=== PATIENT | female | born 2005 | race Caucasian/White ===

== ENCOUNTER 2025-04-28 21:32 | Emergency (ER) | payer OTHER, SELFPAY ==
[2025-04-28 21:38] VITALS: BP 135/80
[2025-04-28 21:49] LABS: % Basophils 0.4 % (0-2); % Eosinophils 1.4 % (0-6); % Immature Granulocytes 0.3 % (0-0.5); % Lymphocytes 41.5 % (20.5-51.1); % Monocytes 10.4 % (1.7-9.3); Absolute Eosinophils 0.1 10^3/uL (0-0.7); Absolute Lymphocytes 3.2 10^3/uL (1.2-3.4); Absolute Monocytes 0.8 10^3/uL (0.1-0.6); Absolute Neutrophils 3.6 10^3/uL (1.4-6.5); Hemoglobin 11.7 g/dL (13.0-18.0); Mean Corp Hgb Conc. 33.4 g/dL (33.0-37.0); Mean Corpuscular Hgb 26.6 pg (27.0-31.0); Mean Corpuscular Volume 79.5 fL (80.0-94.0); Mean Platelet Volume 9.1 fL (7.4-10.4); Nucleated Red Blood Cells % 0 % (-); Platelet Count 279 10^3/uL (130-400); Red Cell Dist. Width 13.2 % (11.5-14.5); White Blood Cell Count 7.8 10^3/uL (4.8-10.8)
[2025-04-28 22:03] LABS: HCG, Serum Qualitative Screen Negative
[2025-04-28 22:07] LABS: ALT (SGPT) 18 U/L (0-50); AST (SGOT) 21 U/L (17-59); Albumin 4.1 g/dl (3.5-5.0); Alkaline Phosphatase 74 U/L (38-126); Blood Urea Nitrogen 9 mg/dl (9-20); Calcium 9.2 mg/dl (8.4-10.2); Carbon Dioxide 23 mmol/L (22-30); Chloride 112 mmol/L (98-107); Glucose 104 mg/dl (70-99); Lipase 107 U/L (23-300); Potassium 3.7 mmol/L (3.5-5.1); Sodium 141 mmol/L (135-145); Total Bilirubin 0.6 mg/dl (0.2-1.3)
[2025-04-28 22:17] LABS: Total Protein 6.7 g/dl (6.3-8.2); eGFR > 60.00
[2025-04-29 01:10] VITALS: BP 123/72
[2025-04-29 01:13] VITALS: BMI 31.4
[2025-04-29 01:23] LABS: Urine Albumin 1+ (Neg - Trace); Urine Bilirubin Negative (Negative); Urine Character Slightly Cloudy (Clear); Urine Color Amber; Urine Glucose Negative (Negative); Urine Ketone Negative (Negative); Urine Leukocyte 3+ (Negative); Urine Nitrite Negative (Negative); Urine Occult Blood Negative (Negative); Urine Specific Gravity 1.025 (<1.030); Urine Urobilinogen 2+ (Neg - 1+)
[2025-04-29 01:29] LABS: Urine Amorphous Seen; Urine Bacteria Many (Negative); Urine Mucus Many; Urine Squamous Cell >30 /LPF (Few)
[2025-04-29 01:30] LABS: Urine White Cell >100 /HPF (0-5)
--- NOTE | 2025-04-29 02:05 | ED.GENMED ---
History of Present Illness
<Reymundo Haro MD - Last Filed: 04/29/25 02:09>
General
Chief Complaint: Abdominal Pain
Source: patient
Exam Limitations: none
Time Seen by Provider: 04/29/25 00:55
History of Present Illness
History of Present Illness:
19-year-old female complaining of recurring episodes of bandlike upper abdominal pain. Some nausea. Has been going on for months. Typically 1-2 times per week. Typically last hours. Mere's episode has now resolved but she had one earlier in
the week. She has ultrasound scheduled for tomorrow
Past History
<Reymundo Haro MD - Last Filed: 04/29/25 02:09>
Past History
ED Past Medical History: None
Review of Systems
<Reymundo Haro MD - Last Filed: 04/29/25 02:09>
Review of Systems
All Other Systems: Not applicable
Constitutional: Denies fever
Respiratory: Reports no symptoms
: Reports no symptoms
Phy Exam
<Reymundo Haro MD - Last Filed: 04/29/25 02:09>
Physical Exam
Physical Exam:
GENERAL: Alert and oriented in no apparent distress
EYE: Orbits normal.
NECK: Supple
CARDIAC: Regular rate and rhythm without any obvious murmurs.
LUNGS: Clear breath sounds,normal
ABDOMEN: Soft, mild epigastric tenderness. No rebound or guarding no mass or hernia
NEUROLOGICAL: Alert and oriented , grossly non-focal
SKIN: Warm and dry, no rash or lesion, no discoloration, skin intact.
MUSCULOSKELETAL: No edema,no deformity.Good color
PSYCH: Normal and appropriate interaction.
Course
<Reymundo Haro MD - Last Filed: 04/29/25 02:09>
Orders/Labs/Results
Orders:
Orders
04/28/25 21:38
Test Result ONCE
04/28/25 21:43
Complete Blood Count/With Diff Urgent
Comprehensive Metabolic Panel Urgent
HCG, Serum Qualitative Screen Urgent
Lipase Urgent
04/29/25 01:05
US Abdomen Complete/Upper Urgent
Comment:
Reason For Exam: Right upper quadrant pain with radiation to the ba
04/29/25 01:15
Urinalysis Reflex To Culture Urgent
Date Specimen was Collected: 04/29/25
Time Specimen was Collected: 01:14
Urine Microscopic Reflex Cult Urgent
Urine Culture Urgent
[place] Source: U
Specimen Description:
Date Specimen was Collected: 04/29/25
Time Specimen was Collected: 01:14
Abnormal Lab Results
04/28/25 04/29/25
21:43 01:15
RBC 4.40 L 10^6/uL
(4.70-6.10)
Hgb 11.7 L g/dL
(13.0-18.0)
Hct 35.0 L %
(39.0-52.0)
MCV 79.5 L fL
(80.0-94.0)
MCH 26.6 L pg
(27.0-31.0)
Absolute Monos (auto) 0.8 H 10^3/uL
(0.1-0.6)
Monocytes % 10.4 H %
(1.7-9.3)
Chloride 112 H mmol/L
(98-107)
Glucose 104 H mg/dl
(70-99)
Urine Urobilinogen 2+ A
(Neg - 1+)
Leukocyte Esterase Rfl 3+ A
(Negative)
Urine RBC 3-6 A /HPF
(0-2)
Urine WBC (Reflex) >100 A /HPF
(0-5)
Urine Bacteria (Reflex) Many A
(Negative)
Urine Albumin (Reflex) 1+ A
(Neg - Trace)
04/28/25 21:43
04/28/25 21:43
Vital Signs
Initial and Last Documented VS:
Initial Vital Signs
Temp Pulse Resp BP Pulse Ox
98.3 F 93 16 135/80 99
04/28/25 21:38 04/28/25 21:38 04/28/25 21:38 04/28/25 21:38 04/28/25 21:38
Last Documented Vital Signs
Temp Pulse Resp BP Pulse Ox
97.9 F 74 16 124/82 99
04/29/25 01:10 04/29/25 03:45 04/28/25 21:38 04/29/25 03:45 04/29/25 03:45
Agneslt;Victorino Amin, DO - Last Filed: 04/29/25 04:55>
Orders/Labs/Results
Orders:
Orders
04/28/25 21:38
Test Result ONCE
04/28/25 21:43
Complete Blood Count/With Diff Urgent
Comprehensive Metabolic Panel Urgent
HCG, Serum Qualitative Screen Urgent
Lipase Urgent
04/29/25 01:05
US Abdomen Complete/Upper Urgent
Comment:
Reason For Exam: Right upper quadrant pain with radiation to the ba
04/29/25 01:15
Urinalysis Reflex To Culture Urgent
Date Specimen was Collected: 04/29/25
Time Specimen was Collected: 01:14
Urine Microscopic Reflex Cult Urgent
Urine Culture Urgent
[place] Source: U
Specimen Description:
Date Specimen was Collected: 04/29/25
Time Specimen was Collected: 01:14
Abnormal Lab Results
04/28/25 04/29/25
21:43 01:15
RBC 4.40 L 10^6/uL
(4.70-6.10)
Hgb 11.7 L g/dL
(13.0-18.0)
Hct 35.0 L %
(39.0-52.0)
MCV 79.5 L fL
(80.0-94.0)
MCH 26.6 L pg
(27.0-31.0)
Absolute Monos (auto) 0.8 H 10^3/uL
(0.1-0.6)
Monocytes % 10.4 H %
(1.7-9.3)
Chloride 112 H mmol/L
(98-107)
Glucose 104 H mg/dl
(70-99)
Urine Urobilinogen 2+ A
(Neg - 1+)
Leukocyte Esterase Rfl 3+ A
(Negative)
Urine RBC 3-6 A /HPF
(0-2)
Urine WBC (Reflex) >100 A /HPF
(0-5)
Urine Bacteria (Reflex) Many A
(Negative)
Urine Albumin (Reflex) 1+ A
(Neg - Trace)
04/28/25 21:43
04/28/25 21:43
Vital Signs
Initial and Last Documented VS:
Initial Vital Signs
Temp Pulse Resp BP Pulse Ox
98.3 F 93 16 135/80 99
04/28/25 21:38 04/28/25 21:38 04/28/25 21:38 04/28/25 21:38 04/28/25 21:38
Last Documented Vital Signs
Temp Pulse Resp BP Pulse Ox
97.9 F 74 16 124/82 99
04/29/25 01:10 04/29/25 03:45 04/28/25 21:38 04/29/25 03:45 04/29/25 03:45
<Reymundo Haro MD - Last Filed: 04/29/25 02:09>
MDM/Problems Addressed
Differential Diagnosis Includes:
Intermittent upper abdominal pain. Somewhat biliary colic like. Labs stable LFTs stable. Ultrasound pending.
<Reymundo Haro MD - Last Filed: 04/29/25 02:09>
*Pulse Oximetry
Patient hypoxic: no (100%)
<Victorino Amin DO - Last Filed: 04/29/25 04:55>
*Critical Care Note
Total Time (30-74mins, 75-104mins- exclusive of procedures): Not Applicable
<Victorino Amin DO - Last Filed: 04/29/25 04:55>
Update Note
Update Note:
NAME: MIKO LUEVANO
DATE OF EXAM: 04/29/2025
Patient No: [id number]
Physician: HUONG^FLORIN
Date of : 2005
Past Medical History (entered by Technologist):
Reason For Exam (entered by Technologist):
Other Notes (entered by Technologist):
Additional Information (per [facility]): Right upper quadrant pain
RUQ ABDOMINAL ULTRASOUND
IMPRESSION
Mobile gallstones. Gallbladder wall upper limits of normal 3.1 mm. No sonographic Juarez's sign, pericholecystic fluid, or other signs of cholecystitis. Common bile duct is unremarkable.
Small bilateral renal cysts.
Pancreas is partially obscured secondary to overlying bowel gas.
Remainder of the visualized upper abdomen is unremarkable.
ED Attending Note
<Reymundo Haro MD - Last Filed: 04/29/25 02:09>
-
Portions of this chart may have been created with voice recognition software.� Occasional wrong word or��sound alike� substitutions may have occurred due to the inherent limitations of voice recognition software.
Discharge Plan
Departure
Patient Disposition: Home (Routine Discharge)
Date of Disposition: 04/29/25
Time of Disposition: 03:27
Patient with high blood pressure during this ER visit?: Yes
Discharge Problem:
Abdominal pain
Instructions: Abdominal Pain, BLOOD PRESSURE
Prescriptions:
No Action
prednisone 10 MG tablet
10 mg PO .TAPER Qty: 30 0RF
Rx Instructions:
Take [id number], [id number], 57gar5kfac, 73jls7face, 07vrm4bxmp
Referrals:
Kandi Khan CRNP [Family Provider, Family Practice]
Beka Arellano MD [Active, Surgical]
Interventions
Interventions:
*Risk Screen - Suicide Last Done: 04/28/25 21:39
*General Assessment Last Done: 04/29/25 01:08
*Neglect/Abuse Screening Last Done: 04/29/25 03:45
*ED- Fall Risk Assessment Last Done: 04/29/25 01:08
*ED COVID-19 Vaccine History Last Done: 04/29/25 01:08
*Nursing Disposition Last Done: 04/29/25 03:45
AI-Bcltjc-Nfpqgyhapg Assessment Last Done: 04/29/25 01:13
Discharge Date and Time
Discharge Date/Time: 04/29/25 03:45
Print Language: TAMAZIGHT
[2025-04-29 03:45] VITALS: BP 124/82
== END 2025-04-29 03:45 | disposition home or self-care (01) ==
LOC: EMR 21:32
PROVIDERS: EMERGENCY PHYSICIAN Emergency Medicine; FAMILY PHYSICIAN Nurse Practitioner Family
DX: R10.10 Upper abdominal pain, unspecified (principal)
CPT/HCPCS: 99284; 76700; 80053; 81003; 81015; 83690; 84703; 85025; 87086

== ENCOUNTER 2025-06-19 06:47 | Emergency (ER) | payer OTHER, SELFPAY ==
[2025-06-19 06:56] VITALS: BP 107/60
--- NOTE | 2025-06-19 07:36 | ED.GENMED ---
History of Present Illness
General
Chief Complaint: Abdominal Pain
Source: patient
Exam Limitations: none
Time Seen by Provider: 06/19/25 07:06
Nursing documentation reviewed up to this point in time: agreed with
History of Present Illness
History of Present Illness:
19-year-old female with a history of gallbladder pain who presents with recurrent abdominal discomfort. The pain reportedly started 2:30 a.m. The patient describes the pain as constant, with a severity of 8 out of 10, and characterizes it as
stabbing and achy. Previously, the pain was relieved by vomiting; however, today, no relief was achieved with emesis. She has a history of similar episodes with the most recent occurrence being a month ago. Had US here 04/29 showing gall stones.
Her GI doctor is at [facility], saw him and had upper endoscopy was performed last , revealing minor irritation or erosion, and she has HIDA scan scheduled for June 24 at [facility].
Past History
Past History
ED Past Medical History: Other (gall stones)
Social History
Tobacco: Non-smoker
Alcohol: Occasional
Personal: Single
Living: with family
Employment: Employed
Review of Systems
Review of Systems
Allergies reviewed?: Yes
All Other Systems: ROS reviewed and negative except as documented in HPI and ROS
Constitutional: Denies fever
ABD/GI: Reports abdominal pain, nausea and vomiting; Denies diarrhea
Musculoskeletal: Reports no symptoms
Skin: Reports no symptoms
Neurological: Reports no symptoms
Phy Exam
Physical Exam
Physical Exam:
General: Alert, mild distress due to pain, sitting style bent over forward.
Skin: Warm, dry.
Eyes, ears, nose, mouth and throat: Oral mucosa moist.
Cardiovascular: Normal peripheral perfusion, no edema.
Respiratory: Respirations are non-labored.
Gastrointestinal: Soft, tender LUQ. Hypoactive BS. Abdomen nondistended.
Back: Normal range of motion, normal alignment.
Musculoskeletal: Normal range of motion, normal strength.
Neurological: Alert and oriented to person, place, time, and situation, no focal neurological deficit observed.
Psychiatric: Cooperative, appropriate mood & affect.
Course
Orders/Labs/Results
Orders:
Orders
06/19/25 07:32
IV Insert/Care/Rem.- Treatment PRN
0.9% Sodium Chloride 1000 ml [Nss] 1,000 ml IV BOLUS
Ketorolac [Toradol] 15 mg IV NOW STA
US Abdomen Complete/Upper Urgent
Comment:
Reason For Exam: RUQ pain
06/19/25 07:33
Test Result ONCE
06/19/25 07:59
Complete Blood Count/With Diff Urgent
Comprehensive Metabolic Panel Urgent
HCG, Serum Qualitative Screen Urgent
Lipase Urgent
Abnormal Lab Results
06/19/25
07:59
MCV 79.2 L fL
(81.0-99.0)
MCH 26.1 L pg
(27.0-31.0)
Absolute Neuts (auto) 8.2 H 10^3/uL
(1.4-6.5)
Absolute Monos (auto) 0.9 H 10^3/uL
(0.1-0.6)
Neutrophils % 76.9 H %
(42.2-75.2)
Lymphocytes % 14.2 L %
(20.5-51.1)
Glucose 144 H mg/dl
(70-99)
Total Bilirubin 1.5 H mg/dl
(0.2-1.3)
06/19/25 07:59
06/19/25 07:59
Vital Signs
Initial and Last Documented VS:
Initial Vital Signs
Pulse Resp BP Pulse Ox
60 20 107/60 98
06/19/25 06:56 06/19/25 06:56 06/19/25 06:56 06/19/25 06:56
Last Documented Vital Signs
Pulse Resp BP Pulse Ox
60 20 107/60 98
06/19/25 06:56 06/19/25 06:56 06/19/25 06:56 06/19/25 07:36
MDM/Problems Addressed
Differential Diagnosis Includes:
1. Cholecystitis
2. Gallstones
3. Peptic ulcer disease
4. Gastritis
5. Pancreatitis
6. Gastroesophageal reflux disease (GERD)
7. Hepatitis
8. Functional abdominal pain
9. Irritable bowel syndrome
10. Biliary dyskinesia
MDM/Problems Addressed:
19-year-old female with a history of gallbladder pain who presents with recurrent abdominal discomfort. The pain reportedly started 2:30 a.m. The patient describes the pain as constant, with a severity of 8 out of 10, and characterizes it as
stabbing and achy. Previously, the pain was relieved by vomiting; however, today, no relief was achieved with emesis. She has a history of similar episodes with the most recent occurrence being a month ago. Had US here 04/29 showing gall stones.
Her GI doctor is at [facility], saw him and had upper endoscopy was performed last , revealing minor irritation or erosion, and she has HIDA scan scheduled for June 24 at [facility].
Afebrile
Plan:
- Perform basic blood work.
- Conduct an abdominal ultrasound to assess gallbladder pathology.
- Administer intravenous fluids.
- Provide Toradol for pain management.
- Administer Zofran for nausea.
- Follow up with the upcoming test scheduled for June 24.
US 04/29 report reviewed: There are small shadowing gallstones layering in the gallbladder lumen. The gallbladder is mildly distended measuring 9 cm in length. The anterior gallbladder wall measures 3.1 mm in thickness. The sonographic Juarez's sign
was reportedly negative.
8:30 a.m.
CBC unremarkable
CMP total bili 1.5 up from 0.6 a month ago otherwise unremarkable
9:45 a.m.
Pt declined when pain med offered as 'not that bad' pain
Upper abd US radiology report read:
IMPRESSION:
Cholelithiasis. There are no sonographic findings to suggest acute cholecystitis. No evidence of biliary ductal dilation.
The pancreas is not optimally visualized, with no gross abnormality in the peripancreatic region.
Small simple cyst arising in the lower pole the right kidney.
Copy of report given to pt.
She will keep appt for HIDA this week and f/u with her GI doctor
Patient observed ambulating out with normal gait at discharge
*Pulse Oximetry
SaO2: 98
Oxygen Mode of Delivery: Room air
Patient hypoxic: not evaluated
*Critical Care Note
Total Time (30-74mins, 75-104mins- exclusive of procedures): Not Applicable
ED Attending Note
-
Portions of this chart may have been created with voice recognition software.� Occasional wrong word or��sound alike� substitutions may have occurred due to the inherent limitations of voice recognition software.
Discharge Plan
Departure
Patient Disposition: Home (Routine Discharge)
Date of Disposition: 06/19/25
Time of Disposition: 09:49
Patient with high blood pressure during this ER visit?: No
Condition: Good
Discharge Problem:
Abdominal pain, right upper quadrant
Instructions: Abdominal Pain
Prescriptions:
No Action
prednisone 10 MG tablet
10 mg PO .TAPER Qty: 30 0RF
Rx Instructions:
Take [id number], 78byn2lfyr, 80iwx5udup, 34kxh1eqgz, 78jic5ghsy
Referrals:
[facility] [Other] - Keep scheduled appt
Kandi Khan CRNP [Family Provider, Family Practice]
Activity Restrictions/Additional Instructions:
As we discussed, your workup here today shows nothing worrisome. Keep your appointment for your HIDA scan and follow-up with your GI doctor as scheduled
Ibuprofen 600 mg (with food) every 6 hours as needed for pain.
Interventions
Interventions:
*Risk Screen - Suicide Last Done: 06/19/25 06:56
*General Assessment Last Done: 06/19/25 06:56
*Neglect/Abuse Screening Last Done: 06/19/25 06:56
*ED- Fall Risk Assessment Last Done: 06/19/25 06:56
*ED COVID-19 Vaccine History Last Done: 06/19/25 06:56
IP-Lvmcbl-Udoifclyou Assessment Last Done: 06/19/25 07:26
Discharge Date and Time
Print Language: CITIZ[place]
[2025-06-19] MEDS: NSS 1000 IV (08:01)
[2025-06-19 08:10] LABS: Hematocrit 41.8 % (37.0-47.0); Hemoglobin 13.8 g/dL (12.0-16.0); Mean Corp Hgb Conc. 33.0 g/dL (33.0-37.0); Mean Corpuscular Volume 79.2 fL (81.0-99.0); Nucleated Red Blood Cells % 0 %; Platelet Count 292 10^3/uL (130-400); Red Cell Dist. Width 13.3 % (11.5-14.5)
[2025-06-19 08:20] LABS: HCG, Serum Qualitative Screen Negative
[2025-06-19 08:24] LABS: ALT (SGPT) 28 U/L (0-35); AST (SGOT) 34 U/L (14-36); Albumin 4.8 g/dl (3.5-5.0); Alkaline Phosphatase 85 U/L (38-126); Blood Urea Nitrogen 14 mg/dl (7-17); Calcium 10.0 mg/dl (8.4-10.2); Carbon Dioxide 25 mmol/L (22-30); Chloride 106 mmol/L (98-107); Glucose 144 mg/dl (70-99); Lipase 108 U/L (23-300); Potassium 3.8 mmol/L (3.5-5.1); Sodium 139 mmol/L (135-145); Total Protein 7.9 g/dl (6.3-8.2); eGFR > 60.00
== END 2025-06-19 10:00 | disposition home or self-care (01) ==
LOC: EMR 06:47
PROVIDERS: Registered Nurse; EMERGENCY PHYSICIAN Emergency Medicine; FAMILY PHYSICIAN Nurse Practitioner Family
DX: R10.11 Right upper quadrant pain (principal)
CPT/HCPCS: 99284; 76700; 80053; 83690; 84703; 85025